=== PATIENT | male | born 1950 | race Caucasian/White ===

== ENCOUNTER 2017-01-09 09:00 | Inpatient (IN) | payer BC ==
--- NOTE | 2017-01-03 14:26 | HP ---
HISTORY AND PHYSICAL: DATE OF ADMISSION/SURGERY: 01/09/17 DATE OF OFFICE VISIT: 01/03/17 SURGEON: Beatriz Preciado MD. PROCEDURE: Left total hip arthroplasty. CHIEF COMPLAINT: Left hip pain. HISTORY OF PRESENT ILLNESS: Mr. Hernandez is a 66-year-old gentleman with complaints of left hip pain. He has failed conservative management and has elected to proceed with a left total hip arthroplasty . The surgery is scheduled for 01/09/[address] Preciado. PAST MEDICAL HISTORY: 1. Hypertension. 2. Hyperlipidemia. 3. BPH. 4. Acid reflux. PAST SURGICAL HISTORY: 1. Bilateral knee arthroscopies. 2. Umbilical hernia repair. 3. Tonsillectomy. CURRENT MEDICATIONS: 1. Hydrochlorothiazide. 2. Omeprazole. 3. Naproxen. 4. Cialis. 5. Multivitamin. ALLERGIES: No known drug allergies. FAMILY HISTORY: Colon cancer, heart disease, and prostate cancer. SOCIAL HISTORY: He is a 66-year-old gentleman. He lives with his . He is retired. He does no t smoke or use drugs. He uses occasional alcohol. REVIEW OF SYSTEMS: A complete 14-point review of systems was reviewed with the patient. It was pos itive for occasional lightheadedness. He denies shortness of breath, chest pain, palpitations. The rest was negative and noncontributory. PHYSICAL EXAMINATION GENERAL: He is well developed, well nourished, he is in no acute distress. VITAL SIGNS: He stands 6 feet 1 inch tall, blood pressure is 160/92, his heart rate is 80. HEENT: Normocephalic, atraumatic. NECK: Supple. No palpable lymph nodes. Trachea is midline. CARDIO: Regular rate and rhythm. Strong S1, S2. ABDOMEN: Soft, nontender, nondistended. MUSCULOSKELETAL: Left lower extremity skin is intact. He has limited internal and external rotatio n of the left hip and he walks with an antalgic-type gait favoring his left leg. His lower extremit y muscle group strengths are intact at 5/5. He has 2+ dorsalis pedis pulses and intact sensation. NEUROLOGIC: He is alert and oriented x3. Cranial nerves II through XII are intact. ASSESSMENT AND PLAN: Mr. Hernandez is a 66-year-old gentleman with the complaints of left hip pain sec ondary to osteoarthritis. He has failed conservative management and has elected to proceed with a l eft total hip arthroplasty, which is scheduled for 01/09/[address] Preciado discussed the risks and benefits of the surgery at today's visit, and all of his questions were answered. Coumad in, Percocet, and Colace were sent to his pharmacy today for postoperative pain control and DVT prop hylaxis. He will see Dr. Preciado back 2 weeks after the surgery. KLAUDIA LEACH [id number]/[facility] #: [id number]
[~2017-01-09 09:00] MED LIST: Buffered Lidocaine 1% SYR 3ML* 3 ML/SYR SYRINGE INTRADERM ONE; Dexamethasone IV* 4 MG/ML 1 ML (4 MG) IV SLOW PU ONE; Famotidine IV* 10 MG/ML 2 ML (20 mg) IV ONE; Scopolamine 1.5 mg* PATCH TRANSDERM ONE
[2017-01-09] MEDS ORDERED: Scopolamine 1.5 mg* PATCH ONE (10:53)
[2017-01-09] MEDS ORDERED: ceFAZolin 2 GM PREMIX(*) 2 GM/50 ML BAG IVPB ONE (10:53)
[2017-01-09] MEDS ORDERED: Dexamethasone IV* 4 MG/ML 1 ML (4 MG) ONE (10:53)
[2017-01-09] MEDS ORDERED: Famotidine IV* 10 MG/ML 2 ML (20 mg) ONE (10:53)
[2017-01-09] MEDS ORDERED: Morphine PF AMP (0.5MG/ML)* 5 MG/10 ML AMP ONE (11:22)
[2017-01-09] MEDS ORDERED: fentaNYL* 50 MCG/ML 2 ML VIAL (100 MCG VIAL) ONE (11:22)
[2017-01-09] MEDS ORDERED: Midazolam* 1 MG/ML 5 ML VIAL (5 MG) ONE (11:22)
[2017-01-09] MEDS ORDERED: Midazolam* 1 MG/ML 2 ML VIAL (2 MG) ONE ×3 (12:15→13:45)
[2017-01-09] MEDS ORDERED: Phenylephrine IV* 40 MCG/ML 10 ML SYRINGE ONE (12:56)
[2017-01-09] MEDS ORDERED: Ondansetron INJ* 2 MG/ML VIAL ONE (12:57)
[2017-01-09] MEDS ORDERED: oxyCODONE TAB* 5 MG TAB PO PRN ×2 (13:25→13:27)
[2017-01-09] MEDS ORDERED: fentaNYL* 50 MCG/ML 2 ML VIAL (100 MCG VIAL) IV PRN (13:25)
[2017-01-09] MEDS ORDERED: PROCHLORPERAZINE INJ 5 MG/ML 2 ML VIAL IV PRN (13:25)
[2017-01-09] MEDS ORDERED: Acetaminophen IV 1GM/100ML * 100 ML IVPB ONE (13:25)
[2017-01-09] MEDS ORDERED: Nalbuphine* 20 MG/ML 1 ML VIAL IV PRN (13:27)
[2017-01-09] MEDS ORDERED: Ondansetron INJ* 2 MG/ML VIAL IV PRN (13:27)
[2017-01-09] MEDS ORDERED: Naloxone* 0.4 MG/ML 1 ML VIAL IV PRN (13:27)
[2017-01-09] MEDS ORDERED: Polyethylene Glycol 3350* 17 GM PACKET PO PRN (14:40)
[2017-01-09] MEDS ORDERED: Bisacodyl SUPP* 10 MG SUPP PR PRN (14:40)
[2017-01-09] MEDS ORDERED: Omeprazole CAP* 20 MG PO PRN (14:45)
--- NOTE | 2017-01-09 14:52 | RAD ---
Indication: LEFT total hip replacement. Comparison: December 11, 2016 Technique: RIGHT lateral decubitus crosstable PA view LEFT hip 1234 hours Report: Acetabular component and test fit femoral component/reamer in place. No periprosthetic fracture evident. Overlying soft tissue edema and subcutaneous emphysema. Urinary catheter noted. IMPRESSION: Intraoperative control film.
[2017-01-09] MEDS ORDERED: Nalbuphine* 20 MG/ML 1 ML VIAL ONE (15:22)
--- NOTE | 2017-01-09 15:26 | RAD ---
INDICATION: Status post total left hip replacement surgery. COMPARISON: Comparison is made with a prior study from December 11, 2016. TECHNIQUE: An AP view of the pelvis and frontal and lateral views of the left hip were obtained. FINDINGS: The patient is status post total left hip replacement surgery. The bones and prostheses are in normal alignment. No fracture is seen. There is a small amount of air within the adjacent soft tissues consistent with the patient's recent surgery. IMPRESSION: STATUS POST TOTAL LEFT HIP REPLACEMENT SURGERY.
[2017-01-09] MEDS: Acetaminophen TAB* 325 MG PO SCH ×2 (16:47→20:43)
[2017-01-09] MEDS ORDERED: Warfarin TAB(*) 6 MG PO ONE (17:00)
[2017-01-09] MEDS: Magnesium Hydroxide LIQ* 30 ML UDC PO SCH (20:42)
[2017-01-09] MEDS: Docusate CAP* 100 MG PO SCH (20:42)
[2017-01-09] MEDS: ceFAZolin 1 GM in Dextrose (*) 1 GM/50 ML BAG IVPB SCH (20:44)
[2017-01-10] MEDS: ceFAZolin 1 GM in Dextrose (*) 1 GM/50 ML BAG IVPB SCH ×2 (03:58→11:59)
[2017-01-10] MEDS ORDERED: diPHENhydraMINE IV* 50 MG/ML 1 ml VIAL (BENADRYL) IV PRN (04:05)
[2017-01-10] MEDS ORDERED: diPHENhydraMINE PO* 25 MG PO PRN (04:05)
[2017-01-10] MEDS ORDERED: Morphine INJ* 10 MG/ML 1 ML SYRINGE IV PRN (04:05)
[2017-01-10] MEDS ORDERED: oxyCODONE/Acetamin 5/325 MG* TAB PO PRN (04:05)
[2017-01-10] MEDS ORDERED: Ondansetron INJ* 2 MG/ML VIAL IV PRN (04:05)
[2017-01-10] MEDS ORDERED: oxyCODONE TAB* 5 MG TAB PO PRN (04:05)
[2017-01-10] MEDS ORDERED: Ondansetron TAB* 4 MG PO PRN (04:05)
[2017-01-10] MEDS: Acetaminophen TAB* 325 MG PO SCH (05:54)
[2017-01-10 06:29] LABS: Hematocrit 39 % (42-52); Hemoglobin 13.2 g/dl (14.0-18.0)
[2017-01-10 06:56] LABS: BUN/Creatinine Ratio 17.2 (8-20); Calcium 8.8 mg/dL (8.6-10.3); EGFR African American 97.9 (>60); EGFR Non-African American 76.1 (>60); Potassium 4.1 mmol/L (3.5-5.0)
[2017-01-10] MEDS: Magnesium Hydroxide LIQ* 30 ML UDC PO SCH ×2 (08:10→20:10)
[2017-01-10] MEDS: Docusate CAP* 100 MG PO SCH ×2 (08:10→20:10)
[2017-01-10] MEDS: Multivitamins/Minerals TAB PO SCH (08:10)
[2017-01-10] MEDS: Hydrochlorothiazide TAB* 25 MG PO SCH (08:10)
--- NOTE | 2017-01-10 08:38 | PN ---
Progress Note - Progress Note SOAP: Subjective: 66 y/o male s/p L VLADIMIR by Dr. Preciado 01/09/2017. Patient with minimal complaints, eager for D/C. Afebrile, VSS overnight. Objective: General- Well appearing, NAD, sitting in bed comfortably MSK- Surgical dressing intact, no drainage noted. No swelling LLE, PT 2+ b/l , + DF/PF. Vital Signs Temp 98.0 F 01/10/17 07:27 Pulse 56 01/10/17 07:27 Resp 16 01/10/17 08:10 BP 129/60 01/10/17 07:27 Pulse Ox 97 01/10/17 07:27 Intake & Output 01/09/17 01/10/17 01/10/17 18:59 06:59 18:59 Intake Total 2350 2549 Output Total 900 2700 Balance 1450 -151 Weight 193 lb 3.2 oz Intake: IV Fluids 2350 976 LR 976 NS 50ML, Cefazolin 2G 50 lr 2300 IVPB 53 ABX - CEFAZOLIN 53 Oral 1520 Output: Osorio 600 2700 Estimated Blood Loss 300 Other: # Bowel Movements 0 Laboratory Results - last 24 hr 01/10/17 01/10/17 01/10/17 05:58 05:58 05:58 Hgb 13.2 L Hct 39 L INR (Anticoag Therapy) 0.88 L Sodium 136 Potassium 4.1 Chloride 105 Carbon Dioxide 27 Anion Gap 4 BUN 17 Creatinine 0.99 Est GFR ( Amer) 97.9 Est GFR (Non-Af Amer) 76.1 BUN/Creatinine Ratio 17.2 Glucose 132 H Calcium 8.8 Assessment: 66 y/o male s/p L VLADIMIR by Dr. Preciado 01/09/2017. Plan: - Probably D/C tomorrow - DVT- lovenox, coumadin, 8mg coumadin tonight - PT/ OT - Continue pain regimen Active Medications Generic Name Dose Route Start Last Admin Trade Name Freq PRN Reason Stop Dose Admin Acetaminophen 975 mg 01/09/17 14:00 01/10/17 05:54 Tylenol Tab* PO 01/10/17 13:59 975 mg Q8H WALE Administration Acetaminophen 650 mg 01/10/17 14:00 Tylenol Tab* PO Q4H PRN mild pain or fever Bisacodyl 10 mg 05/11/17 14:40 Dulcolax Supp* NH DAILY PRN constipation Diphenhydramine HCl 12.5 mg 01/10/17 04:05 Benadryl Iv* IV Q6H PRN PRURITIS Diphenhydramine HCl 25 mg 01/10/17 04:05 Benadryl Po* PO Q6H PRN INSOMNIA Docusate Sodium 100 mg 01/09/17 21:00 01/10/17 08:10 Colace Cap* PO 100 mg BID WALE Administration Enoxaparin Sodium 30 mg 01/10/17 15:00 Lovenox(*) SUBCUT Q24H WALE Hydrochlorothiazide 25 mg 01/10/17 09:00 01/10/17 08:10 Hydrodiuril Tab* PO 25 mg DAILY WALE Administration Cefazolin Sodium/Dextrose 1 gm in 50 mls @ 200 mls/hr 01/09/17 20:00 03:58 Kefzol 1 Gm In Dextrose Duplex (*) IVPB 01/10/17 12:14 200 mls/hr Q8H WALE Administration Lactated Ringer's 1,000 mls @ 100 mls/hr 01/09/17 15:00 01/10/17 02:00 Lactated Ringers 1000 Ml Bag* IV 100 mls/hr PER RATE WALE Administration Lactulose 30 ml 01/09/17 14:40 Lactulose* PO Q6H PRN constipation Magnesium Hydroxide 30 ml 01/09/17 21:00 01/10/17 08:10 Milk Of Magnesia Liq* PO 30 ml BID WALE Administration Morphine Sulfate 5 mg 01/10/17 04:05 Morphine Inj (Syringe)* IV Q2H PRN SEVERE PAIN Multivitamins/Minerals 1 tab 01/10/17 09:00 01/10/17 08:10 Theragran/Minerals Tab* PO 1 tab DAILY WALE Administration Omeprazole 20 mg 01/09/17 14:45 Prilosec Cap* PO DAILY PRN INDIGESTION Ondansetron HCl 4 mg 01/10/17 04:05 Zofran Inj* IV Q6H PRN nausea Ondansetron HCl 4 mg 01/10/17 04:05 Zofran Tab* PO Q6H PRN NAUSEA Oxycodone HCl 10 mg 01/10/17 04:05 01/10/17 08:10 Roxycodone Tab* PO 10 mg Q4H PRN Administration breakthrough pain Oxycodone/Acetaminophen 1 tab 01/10/17 04:05 Percocet 5/325 Tab* PO Q3H PRN PAIN - MODERATE Oxycodone/Acetaminophen 2 tab 01/10/17 04:05 Percocet 5/325 Tab* PO Q3H PRN moderate to severe pain Pharmacy Profile Note 1 note 01/12/17 06:00 Scopolomine Patch Remove* PATCH OFF 01/12/17 06:01 ONCE ONE Pharmacy Profile Note 1 note 01/10/17 17:00 Coumadin Daily Reminder* FOLLOW UP 1700 WALE Polyethylene Glycol/Electrolytes 17 gm 01/09/17 14:40 Miralax* PO DAILY PRN Constipation Warfarin Sodium 8 mg 01/10/17 17:00 Coumadin Tab(*) PO 01/10/17 17:01 ONCE@1700 ONE Protocol
--- NOTE | 2017-01-10 10:24 | OP ---
OPERATIVE REPORT: DATE OF OPERATION: 01/09/17 DATE OF : 54 SURGEON: Beatriz Preciado MD STABILIZING MACHINE OPERATOR: KLAUDIA Jain Ms.. was utilized as an customer relations assistant throughout the procedure for every portion of the procedure and was crucial to being able to perform the surgery. ANESTHESIOLOGIST: Dr. Coelho. ANESTHESIA: Spinal. PRE-OP DIAGNOSIS: Severe end-stage degenerative osteoarthritis of the left hip joint. POST-OP DIAGNOSIS: Severe end-stage degenerative osteoarthritis of the left hip joint. OPERATIVE PROCEDURE: The left total hip arthroplasty with acetabular subchondral cyst, bone autogra fting. IMPLANTS USED: This is uncemented Hop Skip Connect total hip hardware. For the acetabular cup, a Tritanium hemispherical cluster hole shell 58 F, 130-mm cancellous bone screw was used. A Trident X3 0-degree polyethylene inserts 40 F was used. For the stem, an Accolade TMZF size 3.5 with a 127-degree neck . For the head, a -2.5 [place] V40 taper adaptor sleeve, and a 40-mm ceramic Biolox femoral head. COMPLICATIONS: None. ESTIMATED BLOOD LOSS: 300 cc. SPECIMENS: Femoral head and acetabular reaming sent to pathology. BRIEF HISTORY/INDICATIONS: Mr. Hernandez is a 66-year-old gentleman with years of increasingly severe l eft hip pain. He failed conservative treatment with antiinflammatories, pain medication, and physic al therapy. Radiographs confirmed efts-do-osaa arthritis. He elected to undergo left total hip art hroplasty due to continued pain and decreased quality of life. Informed consent was obtained from t he patient. He understood the risks of the procedure included, but were not limited to bleeding, in fection, damage to nearby structures, continued pain, need for further surgery, intraoperative fract ure, nerve palsy, hardware failure or loosening, dislocation, leg length discrepancy, stroke, heart attack, blood clot, and . He wished to proceed. INTRAOPERATIVE FINDINGS: Intraoperatively, the patient was noted to have severe end-stage arthritis of the femoral head and acetabulum. All cartilage was completely worn. Acetabulum had significant superolateral wear as well. DESCRIPTION OF PROCEDURE: Mr. Hernandez was identified in the preanesthesia unit. His left lower extre mity was marked as the correct operative site. Informed consent was signed and placed in the chart. The patient was taken to the operative room and placed under spinal anesthesia without difficulty. A Osorio catheter was placed. Patient was placed in the right lateral decubitus position on the pe g board and all bony prominences were well padded. Left lower extremity was prepped and draped in t he usual sterile fashion. Preop time-out was made to correctly identify the patient's side and site . Appropriate perioperative antibiotics were given within 1 hour of incision. A 12-cm posterior hip incision was made with a 10 blade and carried down to the lateral fascial laye r. Lateral fascial layer was then incised in line with the skin incision. A Charnley retractor was placed. Posterior aspect of the hip joint was easily visualized at this point. The piriformis and conjoined tendons were identified and elevated off the posterolateral femur using electrocautery. These were tagged with two #5 Ethibonds. Next, electrocautery was used to make a standard posterola teral capsular flap, which was also tagged with two #5 Ethibonds. The hip was carefully dislocated a t this point. The lesser troch to the center of the femoral head measured 53 mm. An oscillating sa w was used to make the appropriate femoral neck cut. Femoral head was sent to pathology. The femur was carefully retracted anteriorly. After appropriate placement of retractors, the acetab ulum was easily visualized. Long-handled knife was used to carefully remove any remaining labrum fr om the acetabular rim. The superolateral acetabulum bone loss. There was complete loss of cartilag e and significant osteophyte formation. The acetabulum was sequentially reamed to a size 57. A goo d bleeding bone bed was obtained as well as the good peripheral rim fit. Size 57 trial was placed a nd noted to be stable. A 58 cluster hole shell Tritanium acetabular cup was chosen. A small supero posterior subchondral cyst was carefully cleared off cyst debris with a curette and grafted with marvin tabular bone reaming. The size 58 Tritanium cup was then impacted into the acetabulum. There was a stable fit with appropriate anteversion and abduction angle. One 30-mm screw was placed in the sup erior posterior quadrant for extra stability. A Tritanium X3 0- degree polyethylene insert was chos en, which was 40F. This was impacted into the acetabular cup without difficulty. Stability of the insert was checked and rechecked and noted to be stable. Attention was turned next to preparation of the proximal femur. Box cut osteotome and canal finder were used to enter the proximal femur. Proximal femur was sequentially broached up to a size 3.5. The 3.5 broach had excellent fit and appropriate anteversion. The trial 127 neck was placed as was a 40 +0 femoral head trial. The hip was reduced and taken through a range of motion. The hip was s table in all positions. The soft tissue tension and leg lengths were deemed to be appropriate. The hip was carefully dislocated. Lesser troch to the center of the femoral head measurement was ap proximately 58 mm. All trials were carefully removed. Final implant chosen was an Accolade TMZF si ze 3.5 with a 127-degree neck. This was impacted into the femoral canal without difficulty. There was excellent stability and anteversion. This implant did sit up by approximately 2 mm. A 40 Biolox delta ceramic femoral head was chosen with a -2.5 adaptor. These were impacted onto the femoral neck without difficulty. Lesser troch to the center of the femoral head measured 57 mm. T his fit preoperative templating. The hip was reduced and taken through a range of motion. The hip was stable in all positions. There was good soft tissue tension. The hip was copiously irrigated with sterile saline. Previously tagged capsule and tendons were alfreda pproximated to the posterolateral femur through 2 trochanteric drill holes. The lateral fascial lay er was closed using an interrupted #1 Vicryl. The rest of the incision was closed in a layered fashi on using 0 and 2-0 Vicryl. Skin was closed using running 3-0 Monocryl and Dermabond. Sterile Adapti c, 4x4s, and paper tapes were placed on the incision. The patient's anesthesia was reversed without difficulty. He was taken to the PACU in stable condition. Intended weightbearing will be weightbe aring as tolerated with posterior hip precautions. Intended DVT prophylaxis will be Coumadin with a Lovenox bridge. [id number]/[facility] #: [id number]
[2017-01-10] MEDS: oxyCODONE/Acetamin 5/325 MG* TAB PO PRN ×3 (12:00→20:10)
[2017-01-10] MEDS ORDERED: Acetaminophen TAB* 325 MG PO PRN (14:00)
[2017-01-10] MEDS ORDERED: Enoxaparin(*) 30 MG/0.3 ML SYR SUBCUT SCH (15:00)
[2017-01-10] MEDS ORDERED: Warfarin TAB(*) 4 MG PO ONE (17:00)
[2017-01-11] MEDS: oxyCODONE/Acetamin 5/325 MG* TAB PO PRN ×2 (01:11→06:10)
[2017-01-11 05:50] LABS: Hematocrit 39 % (42-52); Hemoglobin 13.2 g/dl (14.0-18.0)
--- NOTE | 2017-01-11 07:43 | PN ---
Progress Note - Progress Note SOAP: Subjective: pt resting comfortably with minimal pain, no complaints Objective: Vital Signs Temp Pulse Resp BP Pulse Ox 99.1 F 67 14 118/61 97 01/11/17 03:38 01/11/17 03:38 01/11/17 06:10 01/11/17 03:38 01/11/17 03:38 Laboratory Last Values Hgb 13.2 g/dl (14.0-18.0) L 01/11/17 05:36 Hct 39 % (42-52) L 01/11/17 05:36 INR (Anticoag Therapy) 1.16 (0.89-1.11) H 01/11/17 05:36 Sodium 136 mmol/L (133-145) 01/10/17 05:58 Potassium 4.1 mmol/L (3.5-5.0) 01/10/17 05:58 Chloride 105 mmol/L (101-111) 01/10/17 05:58 Carbon Dioxide 27 mmol/L (22-32) 01/10/17 05:58 Anion Gap 4 mmol/L (2-11) 01/10/17 05:58 BUN 17 mg/dL (6-24) 01/10/17 05:58 Creatinine 0.99 mg/dL (0.67-1.17) 01/10/17 05:58 Est GFR ( Amer) 97.9 (>60) 01/10/17 05:58 Est GFR (Non-Af Amer) 76.1 (>60) 01/10/17 05:58 BUN/Creatinine Ratio 17.2 (8-20) 01/10/17 05:58 Glucose 132 mg/dL (70-100) H 01/10/17 05:58 Calcium 8.8 mg/dL (8.6-10.3) 01/10/17 05:58 incision: c/d; dressing changed PE: NVI Assessment: s/p left VLADIMIR; POD #2 Plan: 1) Continue PT/OT-WBAT 2) continue Lovenox/Coumadin/SCD's for DVT prophylaxis 3) home today, F/U with Dr. Preciado in 2 weeks
[2017-01-11 07:58] VITALS: BP 122/62
[2017-01-11] MEDS: Magnesium Hydroxide LIQ* 30 ML UDC PO SCH (08:00)
[2017-01-11] MEDS: Multivitamins/Minerals TAB PO SCH (08:00)
[2017-01-11] MEDS: Docusate CAP* 100 MG PO SCH (08:00)
[2017-01-11] MEDS: Hydrochlorothiazide TAB* 25 MG PO SCH (08:00)
--- NOTE | 2017-01-11 17:34 | DS ---
AMENDED REPORT TO INCLUDE ATTENDING PROVIDER - ESIGNED BEFORE ADJUSTMENT DISCHARGE SUMMARY: DATE OF ADMISSION: 01/09/17 DATE OF DISCHARGE: 01/11/17 ATTENDING PROVIDER: Dr. Preciado * (DICTATED BY KLAUDIA MENDOZA) PRINCIPAL DIAGNOSIS: Severe end-stage osteoarthritis of the left hip. DISCHARGE DIAGNOSIS: Severe end-stage osteoarthritis of the left hip. HISTORY OF PRESENT ILLNESS: Mr. Hernandez is a 66-year-old gentleman with complaints of severe left hip pain secondary to advanced osteoarthritis. He failed conservative management and elected to proceed with a left total hip arthroplasty. HOSPITAL COURSE: Mr. Hernandez is a 66-year-old gentleman who was admitted electively to the hospital on 01/09/17 and underwent a left total hip arthroplasty, which he tolerated well. No complications. Postoperatively, he was placed on Lovenox and Coumadin for DVT prophylaxis. His H and H on postoperative day 1 was 13 and 39. On postop day 2, 13 and 39. His INR went from 0.8 on postop day 1 to 1.16 on postop day 2. His last dose of Coumadin was 8 mg. At the time of discharge on 01/11/17, he was afebrile. He was ambulating well and his wound was clean, dry, and healing well. He was discharged home and asked to follow up with Dr. Preciado in 2 weeks. MEDICATIONS ON DISCHARGE: 1. Colace 1 tab 3 times a day as needed. 2. Percocet 5/325 one to two tabs every 4 to 6 hours as needed for pain. 3. Coumadin 2 mg. 4. Hydrochlorothiazide 25 mg daily. 5. Omeprazole 20 mg daily. PHYSICAL EXAMINATION UPON DISCHARGE: He was afebrile. Vital signs were stable. His wound was clean, dry, and healing well. There was no erythema, drainage, or warmth. No signs of infection. He did well, neurovascularly intact. His lower extremity muscle group strengths were intact at 5/5. He has 2+ dorsalis pedis pulses, he has intact sensation, and he is walking well with the aid of a walker. DISCHARGE INSTRUCTIONS: He is discharged home. He is asked to follow up with Dr. Preciado in 2 weeks. He is given a prescription for Percocet to take every 4 to 6 hours for pain. He is also given a prescription for Colace to help with constipation. He is asked to take Coumadin every at 5 o'clock for DVT prophylaxis. His last INR was 1.16. He is asked to take 8 mg of Coumadin and 8 mg of Coumadin Friday night. He will have his INR rechecked on Friday with [facility]. He will begin physical therapy at his home next week. Posterior hip precautions required and he is weightbearing as tolerated. We have asked him to call us with any questions or concerns. KLAUDIA LEACH [id number]/[facility] #: [id number] LIZZETH
[2017-01-12] MEDS ORDERED: Scopolomine PATCH Remove* 1 NOTE MISC PATCH OFF ONE (06:00)
== END 2017-01-11 10:50 | disposition home or self-care (01) | DRG 301 ==
LOC: AA 10:43 → SSU 15:50
PROVIDERS: ADMIT Orthopaedic Surgery Adult Reconstructive Orthopaedic Surgery; ATTEND Orthopaedic Surgery Adult Reconstructive Orthopaedic Surgery
PROC: 0QU507Z Supplement Left Acetabulum with Autologous Tissue Substitute, Open Approach (ICD-10-PCS; 2017-01-09)
PROC: 0QB50ZZ Excision of Left Acetabulum, Open Approach (ICD-10-PCS; 2017-01-09)
PROC: 0SRB04A Replacement of Left Hip Joint with Ceramic on Polyethylene Synthetic Substitute, Uncemented, Open Approach (ICD-10-PCS; principal; 2017-01-09 12:00)
DX: M16.12 Unilateral primary osteoarthritis, left hip (principal); I10 Essential (primary) hypertension; E78.5 Hyperlipidemia, unspecified; N40.0 Benign prostatic hyperplasia without lower urinary tract symptoms; K21.9 Gastro-esophageal reflux disease without esophagitis; M85.68 Other cyst of bone, other site; M25.752 Osteophyte, left hip; Z80.0 Family history of malignant neoplasm of digestive organs; Z80.42 Family history of malignant neoplasm of prostate; Z82.49 Family history of ischemic heart disease and other diseases of the circulatory system
CPT/HCPCS: 36415; 72170; 80048; 85014; 85018; 85610; A9270-GY; C1713; C1776; J0690; J1100; J1650; J2250; J2300; J2405; J3010

== ENCOUNTER 2019-08-20 07:29 | Inpatient (IN) | payer MEDICARE, BC ==
--- NOTE | 2019-08-13 13:31 | HP ---
AMENDED REPORT NOW INCLUDES DESIGNATED COSIGNER - ESIGNED BEFORE ADJUSTMENTS HISTORY AND PHYSICAL: DATE OF ADMISSION/SURGERY: 08/20/19 DATE OF OFFICE VISIT: 08/13/19 SURGEON: Beatriz Preciado MD * (DICTATED BY KLAUDIA LEACH) PROCEDURE: Right total knee arthroplasty. CHIEF COMPLAINT: Right knee pain. HISTORY OF PRESENT ILLNESS: Mr. Hernandez is a 68-year-old gentleman with end- stage osteoarthritis of the right knee. He has failed conservative treatment and elected to proceed with a right total knee arthroplasty. PAST MEDICAL HISTORY: Hypertension and high cholesterol. PAST SURGICAL HISTORY: Left total hip arthroplasty, bilateral knee arthroscopies and hernia repair. CURRENT MEDICATIONS: 1. Cialis 5 mg as needed. 2. Irbesartan 150 mg daily. 3. Hydrochlorothiazide 12.5 mg a day. 4. Atorvastatin 10 mg a day. ALLERGIES: No known drug allergies. FAMILY HISTORY: Coronary artery disease and stroke. SOCIAL HISTORY: This is a 68-year-old gentleman who lives with his . He does not smoke or use drugs. He drinks approximately 3 beers a night. REVIEW OF SYSTEMS: A complete 14-point review of systems was reviewed with the patient. It was all negative or noncontributory. He denies history of DVT, PE , hepatitis, HIV, or anesthesia problems. PHYSICAL EXAMINATION GENERAL: He is well developed, well nourished, in no acute distress. VITAL SIGNS: He stands 71 inches tall, weighs 190 pounds. His blood pressure is 114/70 and his heart rate is 54. HEENT: Normocephalic, atraumatic. NECK: Supple. No palpable lymph nodes. PULMONARY: The lungs are clear to auscultation bilaterally. CARDIO: Regular rate and rhythm. Strong S1, S2. ABDOMEN: Soft, nontender, nondistended. NEUROLOGICAL: He is alert and oriented x3. MUSCULOSKELETAL: Right Lower Extremity: The skin is intact. There are no open wounds or abrasions. He has a moderate effusion of the right knee joint. Some tenderness along the medial and lateral joint line. Range of motion is 10 to 110 degrees of flexion with significant patellofemoral crepitus. He is able to dorsiflex and plantarflex. He has 2+ dorsalis pedis pulse and intact sensation. ASSESSMENT AND PLAN: Mr. Hernandez is a 68-year-old gentleman with end-stage osteoarthritis of the right knee. He has failed conservative treatment and elected to proceed with the right total knee arthroplasty. The surgery is scheduled for 08/20/[address] Preciado discussed the risks and benefits of the surgery at today's visit and all of his questions were answered. He will follow up with Dr. Preciado 2 weeks after the surgery. KLAUDIA LEACH [id number]/[facility] #: [id number] [facility] CENTERLillian
[~2019-08-20 07:29] MED LIST changes: +Acetaminophen TAB* 325 MG PO ONE; -Buffered Lidocaine 1% SYR 3ML* 3 ML/SYR SYRINGE INTRADERM ONE; +Buffered Lidocaine 1% SYRIN* 1 ML/SYRINGE INTRADERM ONE; -Dexamethasone IV* 4 MG/ML 1 ML (4 MG) IV SLOW PU ONE; -Famotidine IV* 10 MG/ML 2 ML (20 mg) IV ONE; +Gabapentin CAP(*) 300 MG PO ONE; +Lactated Ringers 1000 ML Bag* 1,000 ML IV SCH; -Scopolamine 1.5 mg* PATCH TRANSDERM ONE; +Tranexamic Acid 1,000 MG in NS 0.9% 50 ML* (outpatient use) IV SCH; +celeCOXIB CAP* 200 MG PO ONE
--- OUTSIDE RECORDS SUMMARY | 2019-08-20 07:33 | XMS REPORT | Continuity of Care Document ---
:1950 External Reference #:[id number] Author Name Beatriz Preciado M.D. (transmitted by agent of provider Asuncion Wood) Address [address] [place] [address] [place] [address] Care Team Providers Name Role Phone Anthony Carson MD - Family Medicine Care Team Information Secretary Specialist [phone] Asia Mcallister MD - Family Care Team Information Secretary Specialist [phone] Medicine Problems Active Problems Provider Date Adult health examination Chris Mcdowell M.D.,FACP Onset: 10/05/2007 Gastroesophageal reflux disease Chris Mcdowell M.D.,FACP Onset: 2007 Hyperlipidemia Chris Mcdowell M.D.,FACP Onset: 10/05/2007 Impotence of organic origin Chris Mcdowell M.D.,FACP Onset: 11/08/2008 Ex-smoker Chris Mcdowell M.D.,FACP Onset: 03/31/2009 Vitamin D deficiency Chris Mcdowell M.D.,FACP Onset: 12/27/2009 Localized, primary osteoarthritis Beatriz Preciado M.D. Onset: 12/11/2016 Localized, primary osteoarthritis of Beatriz Preciado M.D. Onset: 12/11/2016 the pelvic region and thigh Prosthetic arthroplasty of the hip Beatriz Preciado M.D. Onset: 02/19/2017 Social History Type Date Description Comments Sex Unknown Cigarette Use Pack Years - 30 Tobacco Use Start: Unknown Smoked 1/2-1 PPD Age 20 To 58, 4 Years Off Tobacco Use Start: Unknown End: Former Cigarette Smoker quit 01/07 Unknown Smoking Status Reviewed: 07/12/19 Former Cigarette Smoker quit 01/07 Smokeless Tobacco Never Used Smokeless Tobacco ETOH Use Drinks 1 Alcoholic Beverage 1-2 daily Per Day Tobacco Use Start: Unknown End: Patient is a former smoker Unknown Exercise Type/Frequency Exercises regularly Allergies, Adverse Reactions, Alerts Description No Known Drug Allergies Medications Active Medications SIG Qnty Indications Ordering Date Provider Cialis 1 by mouth 1 hour 20tabs Unknown 5mg Tablets before intercourse as needed Irbesartan 1 by mouth every Unknown 150mg Tablets day Hydrochlorothiazide 1 by mouth every Unknown 25mg day Tablets Medications Administered in Office Medication SIG Qnty Indications Ordering Provider Date Celestone 3 mg and 3mg David Darden MD 09/09/2018 Injection Synvisc Or Synvisc-One Injection 1 Beatriz Preciado M.D. 04/03/2015 MG Injection Synvisc Or Synvisc-One Injection 1 Beatriz Preciado M.D. 03/27/2015 MG Injection Synvisc Or Synvisc-One Injection 1 Beatriz Preciado M.D. 03/20/2015 MG Injection Depomedrol 80MG Beatriz Preciado M.D. 10/26/2014 Injection Depomedrol 80MG Beatriz Preciado M.D. 12/24/2013 Injection Depomedrol 80MG Beatriz Preciado M.D. 12/10/2013 Injection Immunizations CPT Code Status Date Vaccine Lot # [id number] Given 11/08/2008 Tdap - Tetanus/Diptheria/Acellular Pertussis [id number] Vital Signs Date Vital Result Comment 07/12/2019 10:37am Height 71 inches 5'11" Weight 193.00 lb BP Systolic 120 mmHg BP Diastolic 82 mmHg Respiratory Rate 16 /min Body Temperature 97.6 F Pain Level 5 BMI (Body Mass Index) 26.9 kg/m2 01/11/2019 8:50am Height 71 inches 5'11" Weight 190.00 lb Heart Rate 46 /min Body Temperature 96.4 F O2 % BldC Oximetry 98 % BMI (Body Mass Index) 26.5 kg/m2 Results Description No Information Available Procedures Date Code Description Status 12/30/2004 97831527 Colonoscopy Completed Medical Devices Description No Information Available Encounters Type Date Location Provider Dx Diagnosis Office Visit 01/11/2019 [facility] Beatriz Preciado, M25.552 Pain in left hip 8:30a at [place] [facility] Z47.1 Aftercare following joint replacement surgery Z96.642 Presence of left artificial hip joint Assessments Date Code Description Provider 07/12/2019 M17.0 Bilateral primary osteoarthritis of knee Beatriz Preciado M.D. 07/12/2019 M25.562 Pain in left knee Beatriz Preciado M.D. 07/12/2019 M25.561 Pain in right knee Beatriz Preciado M.D. 07/12/2019 M25.462 Effusion, left knee Beatriz Preciado M.D. 07/12/2019 M25.461 Effusion, right knee Beatriz Preciado M.D. 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 right knee 07/12/2019 M21.162 Varus deformity, not elsewhere classified, left Beatriz Preciado M.D. knee 01/11/2019 M25.552 Pain in left hip Beatriz Preciado M.D. 01/11/2019 Z47.1 Aftercare following joint replacement surgery Beatriz Preciado M.D. 01/11/2019 Z96.642 Presence of left artificial hip joint Beatriz Preciado M.D. Plan of Treatment 07/12/2019 - Beatriz Preciado M.D.M17.0 Bilateral primary osteoarthritis of kneeFollow up:Follow up: 7-10 days before vugfuebR78.562 Pain in left kneeM25.561 Pain in right kneeM25.462 Effusion, left kneeM25.461 Effusion, right kneeM21.161 Varus deformity, not elsewhere classified, right kneeM21.162 Varus deformity, not elsewhere classified, left knee Functional Status Description No Information Available Mental Status Description No Information Available Referrals Description No Information Available
--- OUTSIDE RECORDS SUMMARY | 2019-08-20 07:33 | XMS REPORT | Continuity of Care Document ---
:1950 External Reference #:[id number] Author Name Tone Nevarez DO FACC (transmitted by agent of provider Lupe Guzman) Address [address] [place] [id number] Care Team Providers Name Role Phone Anthony Carson MD - Family Medicine Care Team Information Senior Devops Engineer Asia Mcallister MD - Family Care Team Information Senior Devops Engineer [phone] Medicine Problems Active Problems Provider Date Adult [...] Smoker quit 01/07 Unknown Smoking Status Reviewed: 08/10/19 Former Cigarette Smoker quit 01/07 Smokeless Tobacco Never Used Smokeless Tobacco ETOH Use Drinks 1 Alcoholic Beverage 1-2 daily Per Day Tobacco Use Start: Unknown End: Patient is a former smoker Unknown Recreational Drug Use Never Used Drugs Exercise Type/Frequency Exercises regularly Allergies, Adverse Reactions, Alerts Description No Known Drug Allergies Medications Active Medications SIG Qnty Indications Ordering Date Provider Atorvastatin Calcium 1 by mouth daily 30tabs Tone S. 08/08/2019 10mg Nevarez, DO Tablets FACC Cialis 1 by mouth 1 hour 20tabs [...] CPT Code Status Date Vaccine Lot # [id number] Given 11/08/2008 Tdap - Tetanus/Diptheria/Acellular Pertussis [id number] Vital Signs Date Vital Result Comment 08/10/2019 3:13pm Height 71 inches 5'11" Weight 192.00 lb with shoes Heart Rate 58 /min BP Systolic Sitting 126 mmHg lue reg cuff BP Diastolic Sitting 70 mmHg lue reg cuff BP Systolic Standing 123 mmHg lue reg cuff BP Diastolic Standing 70 mmHg lue reg cuff Respiratory Rate 14 /min BMI (Body Mass Index) 26.8 kg/m2 Ejection Fraction none 07/12/2019 10:37am Height 71 inches 5'11" Weight 193.00 lb BP Systolic 120 mmHg BP Diastolic 82 mmHg Respiratory Rate 16 /min Body Temperature 97.6 F Pain Level 5 BMI (Body Mass Index) 26.9 kg/m2 Results Description No Information Available Procedures Date Code Description Status 08/10/2019 30104 EKG Tracing & Interpretation Completed 12/30/2004 10197849 Colonoscopy Completed Medical Devices Description No Information Available Encounters Type Date Location Provider Dx Diagnosis Office Visit 07/12/2019 [facility] Beatriz Preciado, M17.0 Bilateral primary 10:30a at [place] [facility] osteoarthritis of knee M25.562 Pain in left knee M25.561 Pain in right knee M25.462 Effusion, left knee M25.461 Effusion, right knee M21.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 Varus deformity, not elsewhere classified, right knee M21.162 Varus deformity, not elsewhere classified, left knee Assessments Date Code Description Provider 08/10/2019 Z01.810 Encounter for preprocedural Tone Nevarez DO [facility] cardiovascular examination 08/10/2019 I49.1 Atrial premature depolarization Tone Nevarez DO [facility] 08/10/2019 R94.31 Abnormal electrocardiogram [ECG] [EKG] Tone Nevarez DO [facility] 08/10/2019 I10 Essential (primary) hypertension Tone Nevarez DO [facility] 08/10/2019 E78.5 Hyperlipidemia, unspecified Tone Nevarez DO [facility] 08/10/2019 F17.201 Nicotine dependence, unspecified, 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 07/12/2019 M25.562 Pain in left knee Beatriz Preciado M.D. 07/12/2019 M25.561 Pain in right knee Beatriz Preciado M.D. 07/12/2019 M25.462 Effusion, left knee Beatriz Preciado M.D. 07/12/2019 M25.461 Effusion, right knee Beatriz Preciado M.D. 07/12/2019 M21.161 Varus deformity, not elsewhere Beatriz Preciado M.D. classified, right knee 07/12/2019 M21.162 Varus deformity, not elsewhere Beatriz Preciado M.D. classified, left knee Plan of Treatment Future Appointment(s):08/12/2019 9:00 am - Traveling ECHO 2 at [facility]08/16/2019 8:45 am - Nurse Visit IC at [facility]08/13/2019 3:30 pm - Nurse Visit IC at [facility]08/20/2019 12 :30 pm - KLAUDIA Levy at [facility]08/13/2019 10:00 am - Beatriz Preciado M.D. at [facility] at [id number]/20/2019 12:30 pm - Beatriz Precidao M.D. at [facility] at [id number]/10/2019 - Tone Nevarez DO FACCZ01.810 Encounter for preprocedural cardiovascular examinationFollow up: Please schedule echo and holter suma (surgery on 08/20) f/u PRNI49.1 Atrial premature depolarizationNew Orders:Holter Monitor, Ordered: 08/10/19R94.31 Abnormal electrocardiogram [ECG] [EKG]New Orders:Echocardiogram, Ordered: I10 Essential (primary) ahdbmsbhcgxkW12.5 Hyperlipidemia, rgfmoarcyiwP82.201 Nicotine dependence, unspecified, in remission Functional Status Description No Information Available Mental Status Description No Information Available Referrals Description No Information Available
--- OUTSIDE RECORDS SUMMARY | 2019-08-20 07:33 | XMS REPORT | Continuity of Care Document ---
:1950 External Reference #:[id number] Author Name Beatriz Preciado M.D. (transmitted by agent of provider Asuncion Wood) Address [address] [place] [address] [place] [address] Care Team Providers Name Role Phone Anthony Carson MD - Family Medicine Care Team Information Quarantine Inspector [phone] Asia Mcallister MD - Family Care Team Information Quarantine Inspector [phone] Medicine Problems Active Problems Provider Date Adult [...] Smoker quit 01/07 Unknown Smoking Status Reviewed: 08/13/19 Former Cigarette Smoker quit 01/07 Smokeless Tobacco [...] CPT Code Status Date Vaccine Lot # [id number] Given 11/08/2008 Tdap - Tetanus/Diptheria/Acellular Pertussis [id number] Vital Signs Date Vital Result Comment 08/13/2019 10:23am Height 71 inches 5'11" Weight 190.00 lb Heart Rate 54 /min BP Systolic 114 mmHg BP Diastolic 70 mmHg Respiratory Rate 16 /min Body Temperature 97.0 F Pain Level 3 BMI (Body Mass Index) 26.5 kg/m2 08/10/2019 3:13pm Height 71 inches 5'11" Weight 192.00 lb with shoes Heart Rate 58 /min BP Systolic Sitting 126 mmHg lue reg cuff BP Diastolic Sitting 70 mmHg lue reg cuff BP Systolic Standing 123 mmHg lue reg cuff BP Diastolic Standing 70 mmHg lue reg cuff Respiratory Rate 14 /min BMI (Body Mass Index) 26.8 kg/m2 Ejection Fraction none Results Description No Information Available Procedures Date Code Description Status 08/12/2019 72943 ECHO Transthoracic, Real-Time 2D With Doppler And Color Completed Flow 08/10/2019 48232 EKG Tracing & Interpretation Completed 12/30/2004 18705101 Colonoscopy Completed Medical Devices Description No Information Available Encounters Type Date Location Provider Dx Diagnosis Office Visit 08/10/2019 [facility] Tone Cruz Z01.810 Encounter for 3:40p Of Ange Nevarez DO [facility] preprocedural cardiovascular examination M17.11 Unilateral primary osteoarthritis, right knee I49.1 Atrial premature depolarization R94.31 Abnormal electrocardiogram [ECG] [EKG] I10 Essential (primary) hypertension E78.5 Hyperlipidemia, unspecified F17.201 Nicotine dependence, unspecified, in remission R01.1 Cardiac murmur, unspecified Office Visit 07/12/2019 10:30a [place] Beatriz M17.0 Bilateral primary Orthopedics at [facility] Preciado osteoarthritis of [place] knee M25.562 Pain in left knee M25.561 Pain in right knee M25.462 Effusion, left knee M25.461 Effusion, right knee M21.161 Varus deformity, not elsewhere classified, right knee M21.162 Varus deformity, not elsewhere classified, left knee Assessments Date Code Description Provider 08/13/2019 M17.11 Unilateral primary osteoarthritis, right Beatriz Preciado M.D. knee 08/13/2019 M25.561 Pain in right knee Beatriz Preciado M.D. 08/12/2019 R94.31 Abnormal electrocardiogram [ECG] [EKG] Traveling ECHO 2 08/10/2019 Z01.810 Encounter for preprocedural Tone Nevarez DO [facility] cardiovascular examination 08/10/2019 M17.11 Unilateral primary osteoarthritis, right Tone Nevarez, DO [facility] knee 08/10/2019 I49.1 Atrial premature depolarization Tone Nevarez DO [facility] 08/10/2019 R94.31 Abnormal electrocardiogram [ECG] [EKG] Tone Nevarez DO [facility] 08/10/2019 I10 Essential (primary) hypertension Tone Nevarez, DO [facility] 08/10/2019 E78.5 Hyperlipidemia, unspecified Tone Nevarez, DO [facility] 08/10/2019 F17.201 Nicotine dependence, unspecified, in Tone Nevarez, DO [facility] remission 08/10/2019 R01.1 Cardiac murmur, unspecified Tone Nevarez, DO [facility] 07/12/2019 M17.0 Bilateral primary osteoarthritis of knee [...] classified, left knee Plan of Treatment Future Appointment(s):08/16/2019 8:45 am - Nurse Visit IC at [facility]08/20/2019 12:30 pm - KLAUDIA Levy at [facility] at [place]6808/20/2019 12:30 pm - Beatriz Preciado M.D. at [facility] at [id number] - Beatriz Precaido M.D.M17.11 Unilateral primary osteoarthritis, right kneeFollow up:Follow up: 2 weeks after zrrxjkcJ18.561 Pain in right knee Functional Status Description No Information Available Mental Status Description No Information Available Referrals Description No Information Available
[2019-08-20] MEDS ORDERED: Gabapentin CAP(*) 300 MG ONE (08:27)
[2019-08-20] MEDS ORDERED: Acetaminophen TAB* 325 MG ONE (08:27)
[2019-08-20] MEDS ORDERED: Buffered Lidocaine 1% SYRIN* 1 ML/SYRINGE INTRADERM ONE (08:28)
[2019-08-20] MEDS ORDERED: ceFAZolin 2 GM PREMIX in ORs 2 GM/50 ML BAG ONE (08:28)
[2019-08-20] MEDS ORDERED: celeCOXIB CAP* 200 MG ONE (08:28)
[2019-08-20] MEDS ORDERED: fentaNYL* 50 MCG/ML 5 ML VIAL (250 MCG VIAL) ONE (09:03)
[2019-08-20] MEDS ORDERED: Midazolam* 1 MG/ML 2 ML VIAL (2 MG) ONE (09:03)
[2019-08-20] MEDS ORDERED: Bupivacaine 0.5% SDV PF* 30ML VIAL ONE (09:06)
[2019-08-20] MEDS ORDERED: fentaNYL* 50 MCG/ML 2 ML VIAL (100 MCG VIAL) ONE (09:06)
[2019-08-20] MEDS ORDERED: Bupivacaine 0.5%* 50 ML MDV VIAL ONE ×2 (09:57→11:25)
[2019-08-20] MEDS ORDERED: diPHENhydraMINE IV* 50 MG/ML 1 ml VIAL (BENADRYL) IV PRN ×2 (09:59→13:14)
[2019-08-20] MEDS ORDERED: HYDROmorphone INJ1* 1 MG/ML SYRINGE IV PRN (09:59)
[2019-08-20] MEDS ORDERED: Ondansetron INJ* 2 MG/ML VIAL IV PRN ×2 (09:59→13:14)
[2019-08-20] MEDS ORDERED: PROCHLORPERAZINE INJ 5 MG/ML 2 ML VIAL IV PRN (09:59)
[2019-08-20] MEDS ORDERED: Naloxone* 0.4 MG/ML 1 ML VIAL IV PRN (09:59)
[2019-08-20] MEDS ORDERED: oxyCODONE TAB* 5 MG TAB PO PRN (09:59)
[2019-08-20] MEDS ORDERED: ROPIVACAINE 5 MG/ML 30 ML BTL (0.5%) ONE ×2 (10:07→13:26)
[2019-08-20] MEDS ORDERED: methylPREDNISolone ACETATE 80* 80 MG/ML 1 ML VIAL ONE (11:25)
[2019-08-20] MEDS ORDERED: Ropivacaine 0.2% * 2 MG/ML VIAL ONE (11:28)
[2019-08-20] MEDS ORDERED: Povidone Iodine 5% OPTH* 30 ML BTL ONE (11:45)
[2019-08-20] MEDS ORDERED: diPHENhydraMINE PO* 25 MG PO PRN (13:14)
[2019-08-20] MEDS ORDERED: traMADol TAB* 50 MG PO PRN (13:14)
[2019-08-20] MEDS ORDERED: Polyethylene Glycol 3350* 17 GM PACKET PO PRN (13:14)
[2019-08-20] MEDS ORDERED: Ondansetron TAB* 4 MG PO PRN (13:14)
[2019-08-20] MEDS ORDERED: Morphine INJ* 2 MG/ML 1 ML SYRINGE (TWO MG - NEW SYRINGE VERSION) IV PRN (13:14)
[2019-08-20] MEDS ORDERED: Magnesium Hydroxide LIQ* 30 ML UDC PO PRN (13:14)
[2019-08-20] MEDS ORDERED: Cyclobenzaprine TAB* 10 MG PO PRN (13:14)
[2019-08-20] MEDS ORDERED: Ondansetron ODT TAB* 4 MG PO PRN (13:14)
[2019-08-20] MEDS ORDERED: Pantoprazole TAB * 40 MG TAB PO PRN (13:17)
[2019-08-20] MEDS ORDERED: Propofol* 10 MG/ML 20 ML BTL ONE (13:21)
[2019-08-20] MEDS ORDERED: Acetaminophen TAB* 325 MG PO SCH (14:00)
[2019-08-20] MEDS: Lactated Ringers 1000 ML Bag* 1,000 ML IV SCH (15:50)
--- NOTE | 2019-08-20 16:27 | OP ---
Operative Report - Blank - Operative Report Date of Operation: 08/20/19 Note: JUAN F WESTFALL II 1950 Date of Surgery: 08/20/19 Beatriz Preciado MD Bow String Maker: Destiney RUDOLPH did help throughout the procedure with preparation of the knee, wound retraction, manipulation of the knee, and wound closure. Anesthesiologist: Dr. Hu Anesthesia Type: Spinal Preoperative Diagnosis: Right severe degenerative osteoarthritis of the knee, Left severe degenerative osteoarthritis of the knee Postoperative Diagnosis: As above Procedure Performed: Right Total Knee Arthroplasty, Left knee intraarticular steroid injection Tourniquet time: 59 minutes Complications: None Specimen: Bone and cartilage from the right knee joint sent to pathology. Hardware Used: Cemented Webb and Nephew total knee hardware was used - For the femur a size 7 right oxinium legion posterior stabilized femoral component, for the tibia a size 6 right bonifacio II tibial baseplate, for the insert a size 9mm 5-6 posterior stabilized articular polyethylene insert, and for the patella a size 35 3-peg all poly patella. Brief History/Indication: JUAN F WESTFALL II was known in clinic and had a history of severe right knee pain and swelling. He failed conservative treatment with anti-inflammatories, pain pills, intra-articular injections and physical therapy. He elected to undergo right total knee arthroplasty due to continued pain and decreased quality of life. Radiographs showed severe end stage osteoarthritis of the knee with bone on bone contact. Informed consent was obtained from the patient. He understood the risks of surgery included but were not limited to: bleeding, infection, damage to nearby structures, intraoperative fracture, nerve palsy, failure of the hardware, early loosening, knee stiffness or loss of motion, anesthesia complications, stroke, heart attack , blood clot and . He wished to proceed. Intra-Operative Findings: Intraoperatively the patient was noted to have severe loss of cartilage in all 3 compartments of the knee. Description of the Procedure: JUAN F WESTFALL II was identified in the preanesthesia unit. His right knee was marked as the correct operative side. Left knee was marked for injection. Informed consent was signed and placed in the chart. The patient was taken to the operating room and placed under anesthesia without complication. A dacosta catheter was placed. Timeout for left knee injection was performed. Under sterile conditions, 80 mg depomedrol and 6 cc 1% lidocaine was injected into the left knee joint. A tourniquet was placed on the right thigh. The right lower extremity was prepped and draped in the usual sterile fashion. Preoperative time-out was made to correctly identify the patient, side and site. Appropriate intraoperative antibiotics were given within one hour of incision. Tourniquet was inflated. A midline incision was made and carried sharply down to the extensor mechanism. A new 10 blade was used to make a standard medial parapatellar arthrotomy. The patella was subluxed laterally. Electrocautery was used to dissect soft tissue off the superomedial tibia to the midsagittal plane. The knee was flexed up. The anterior horn of the lateral meniscus and the ACL were sharply incised. A drill was used to enter the distal femur. The intramedullary distal femoral cutting guide was pinned on the distal femur. The oscillating saw was used to make the distal femoral cut. The external rotation guide was pinned on the distal femur and the distal femur was sized to a size 7. The size 7 multi-cutting jig was pinned on the distal femur. The oscillating saw was used to make the appropriate 4 chamfer cuts. Next the PCL was completely released. The extramedullary tibial cutting guide was pinned on the proximal tibia and the oscillating saw was used to make the proximal tibial cut perpendicular to the mechanical axis of the tibia. The bone was carefully removed. The knee was brought out into full extension. The spacer block was placed and had excellent fit with the knee in full extension. The medial and lateral ligaments were well balanced. The flexion and extension gaps were well balanced. The knee was flexed up. Lamina nuclear physicist was placed both medially and laterally. Any remaining meniscus was removed with electrocautery. Curved osteotome was used to remove any posterior osteophytes. The tibial tray and drop casey were placed and confirmed a satisfactory tibial cut. The size 7 right femoral trial was impacted onto the distal femur. This trial had excellent fit and stability. The box for the posterior stabilized implant was prepared using a box cut osteotome and a reamer. Next a tibial tray trial and 9 mm insert trial was placed. The knee was taken through a range of motion and had full extension to 130 degrees of flexion. Patellofemoral tracking was satisfactory. The patella was inverted and sized to a size 35. Three peg holes were drilled through the size 35 drill guide. The trial patella was placed and the knee was taken through a range of motion. There was satisfactory patellofemoral tracking. All trials were removed. The tibia was subluxed anteriorly and sized to a size 6. The proximal tibial was prepared with a size 6 keel punch. All bony cut surfaces were irrigated with sterile saline and dried. Final implants were cemented into place starting with the tibia, followed by the femur, and last the patella. A 9 mm insert trial was placed and the knee was brought into full extension. Tourniquet was turned down and the knee was copiously irrigated with sterile saline. Electrocautery was used to obtain meticulous hemostasis. Once the cement had fully cured, the insert trial was removed. Any excess cement was removed from around the hardware and capsule. Final insert chosen was a 9 mm posterior stabilized Bonifacio II articular insert size 5-6. Stability of the insert was checked and noted to be stable. The extensor mechanism was closed using number 1 vicryls. The rest of the incision was closed in a layered fashion using 0 and 2-0 vicryls. The skin was closed using 3-0 nylon suture. Sterile xeroform, 4x4s and webril were used to cover the incision. Loco wrap and cold pack were used to cover the dressings. The patients anesthesia was reversed without difficulty. He was taken to the PACU in stable condition. Intended weight-bearing will be as tolerated.
[2019-08-20] MEDS: oxyCODONE/Acetamin 5/325 MG* TAB PO PRN ×2 (17:03→21:36)
[2019-08-20] MEDS: oxyCODONE TAB* 5 MG TAB PO PRN ×2 (17:53→21:36)
[2019-08-20] MEDS ORDERED: Valsartan TAB* 160 MG PO SCH (18:00)
[2019-08-20] MEDS: ceFAZolin 1 GM ADVAN(*) 1 GM in NS 0.9% 50 ML* 50 ML IVPB SCH (19:49)
--- NOTE | 2019-08-20 19:55 | CONS ---
HOSPITAL MEDICINE CONSULTATION REPORT: DATE OF CONSULT: 08/20/19 PROVIDER: Nadia Issa NP ATTENDING PHYSICIAN: Dr. Beatriz Preciado. CONSULTING PHYSICIAN: Dr. Jonnie Evans (dictated by Nadia Issa NP). REASON FOR CONSULT: Co-management of chronic medical conditions. HISTORY OF PRESENT ILLNESS: Mr. Hernandez is a 68-year-old male with a past medical history significant for hypertension, osteoarthritis, hyperlipidemia, and GERD, who presented to [facility] [place] for an elective righ t total knee arthroplasty with Dr. Preciado. Please see dictated H and P from Christina Boykin for complet e details. In brief, the patient had ongoing pain, failed conservative measures and therefore opted for a right total knee arthroplasty with Dr. Preciado. In the immediate postoperative period, the patie nt has no complaints. He denies any recent fever or chills, unintended weight loss, chest pain, thaddeus a, cough, hemoptysis, shortness of breath. No nausea, vomiting, diarrhea, abdominal pain, hematuria, or dysuria. Denies any focal weakness or sensory loss. Denies any visual complaints, dysphagia. He does complain of some right knee pain. No rashes, lesions, open sores, psychosis, or anxiety. Due to the patient's history of hypertension, Hospital Medicine was asked to consult to help co-manag e his care during this hospitalization. PAST MEDICAL HISTORY: Significant for: 1. Hypertension. 2. Osteoarthritis. 3. Hyperlipidemia. 4. GERD. PAST SURGICAL HISTORY: 1. Abdominal hernia repair x2. 2. Knee surgery. 3. Left hip surgery. HOME MEDICATIONS: Include: 1. Atorvastatin 10 mg p.o. daily. 2. Cialis 5 mg p.o. daily as needed. 3. Valsartan 150 mg p.o. daily. 4. Hydrochlorothiazide 25 mg p.o. daily. ALLERGIES: No known drug allergies. FAMILY HISTORY: Father at the age of 28 from rheumatic heart disease. No reported history of d iabetes or cancer in the family. SOCIAL HISTORY: The patient quit smoking approximately 12 years ago. Prior to that he smoked more t nguyen half pack a day for 25 years. He does report 2 to 3 beers daily. Denies any illicit drug use. He is . He lives with his . Surrogate decision maker in the event he is unable to make hi s own decision is his . He is a full code. REVIEW OF SYSTEMS: An 14-point review of systems was completed. All pertinent positives are mention ed in the HPI. PHYSICAL EXAMINATION: General: At this time, Mr. Hernandez is a 68-year-old male. He is alert and orie nted, resting on his hospital bed. He is in no acute distress. Vital Signs: Blood pressure 152/64, heart rate is 56, respirations 18, O2 saturation of 100%, and temperature is 98.1. HEENT: Head is a traumatic, normocephalic. Eyes: EOMs are intact. Sclerae are anicteric and not pale. Oral mucosa appeared to be moist. Neck is supple. Lungs are clear to auscultation bilaterally. No wheezes, ral es, or rhonchi. Cardiac: S1, S2. Regular rate and rhythm. No rubs or gallops. Abdomen is soft an d nontender. Bowel sounds are present x4. Extremities: He is able to move all 4 extremities. Peda l pulses are +2 bilaterally. He does have a dressing that has a drain intact to his right knee. Neur ologic: He is awake, alert, oriented x3. Speech is clear. Thought process is intact. There are no gross focal deficits. Skin: He does have dressing dry and intact to his right knee. LABORATORY DATA/DIAGNOSTIC STUDIES: CBC from 08/13/19, WBCs 6.1, RBCs 4.59, hemoglobin 14.1, hematoc rit 41, platelet count was 190. INR was 0.90. Urine was within normal limits with the exception of specific gravity of 1.006. IMPRESSION AND PLAN: Mr. Hernandez is a 68-year-old male with a past medical history significant for hyp ertension, osteoarthritis, hyperlipidemia, and acid reflux, who presented to [facility] [place] for an elective righ t total knee arthroplasty with Dr. Preciado. Our recommendations are as follows: 1. Status post right total knee arthroplasty. Management per Orthopedics, PT/OT per Orthopedics. B owel regimen per Orthopedics. Pain management per Orthopedics. DVT prophylaxis per Orthopedics. 2. Hypertension. I will continue him on his valsartan. I will hold his hydrochlorothiazide and res ume as able. 3. Hyperlipidemia. He is to continue on atorvastatin 10 mg p.o. daily. 4. FEN. He can have a regular diet. 5. Code status. He is a full code. 6. DVT prophylaxis. As per Orthopedics. TIME SPENT: Time spent on this consultation was 45 minutes, greater than half that time was spent at the bedside reviewing the events leading thus far to this hospitalization, performing physical exam and reviewing my plan of care. I have discussed this with my attending, Dr. Jonnie Evans, he is in agreement with my plan. NADIA ISSA, REGISTERED MIDWIFE [id number]/CPS #: [id number]
[2019-08-20] MEDS ORDERED: Atorvastatin* 10 MG TAB PO SCH (21:00)
[2019-08-20] MEDS: Magnesium Hydroxide LIQ* 30 ML UDC PO SCH (21:35)
[2019-08-20] MEDS: Docusate CAP* 100 MG PO SCH (21:35)
[2019-08-21] MEDS: oxyCODONE TAB* 5 MG TAB PO PRN ×3 (00:49→13:59)
[2019-08-21] MEDS: Lactated Ringers 1000 ML Bag* 1,000 ML IV SCH (02:11)
[2019-08-21] MEDS: oxyCODONE/Acetamin 5/325 MG* TAB PO PRN ×3 (03:13→11:53)
[2019-08-21] MEDS: ceFAZolin 1 GM ADVAN(*) 1 GM in NS 0.9% 50 ML* 50 ML IVPB SCH ×2 (03:13→11:49)
[2019-08-21 06:19] LABS: Hematocrit 36 % (42-52); Hemoglobin 12.6 g/dL (14.0-18.0); Mean Platelet Volume 9.5 fL (7.4-10.4); Platelet Count 158 10^3/uL (150-450)
[2019-08-21 06:32] LABS: BUN/Creatinine Ratio 16.8 (8-20); Calcium 8.6 mg/dL (8.6-10.3); EGFR African American 78.6 (>60); EGFR Non-African American 64.9 (>60); Potassium 3.9 mmol/L (3.5-5.0)
[2019-08-21] MEDS ORDERED: Vitamin THERAPEUTIC TAB PO SCH (09:00)
[2019-08-21] MEDS ORDERED: Hydrochlorothiazide TAB* 25 MG PO SCH (09:00)
[2019-08-21] MEDS ORDERED: Apixaban* 2.5 MG TAB PO SCH (09:00)
[2019-08-21] MEDS: Magnesium Hydroxide LIQ* 30 ML UDC PO SCH (09:01)
[2019-08-21] MEDS: Docusate CAP* 100 MG PO SCH (09:01)
--- NOTE | 2019-08-21 10:22 | PN ---
Progress Note - Progress Note Date of Service: 08/21/19 SOAP: Subjective: [Pt is doing well, seen laying in bed this am. Has been up with physical therapy this am. States that pain is well controlled. Denies any chest pain, SOB. nausea or vomiting. ] Objective: [General: A&Ox3, NAD MSK, RLE: Dressing is c/d/i, Dressing changed, incision is c/d/i/ NVI distally. 2+ DP pulse. + df/pf. ] Vital Signs Temp 97.6 F 08/21/19 08:23 Pulse 55 08/21/19 08:23 Resp 16 08/21/19 08:23 BP 154/77 08/21/19 08:23 Pulse Ox 98 08/21/19 08:23 Intake & Output 08/20/19 08/21/19 08/21/19 18:59 06:59 18:59 Intake Total 840 Output Total 1300 2900 Balance -1300 -2060 Weight 192 lb 3.2 oz Intake: Oral 840 Output: Urine 2450 Osorio 1300 450 Other: Estimated Void Large # Voids 1 Assessment: [POD 1 RTKA ] Plan: [Eliquis x 30 days PT/OT Pain medication DC home today ]
--- NOTE | 2019-08-21 10:24 | DS ---
Orthopedic Discharge Summary - Discharge Summary Date of Admission:08/20/19 Date of Discharge: 08/21/2019 Date of Surgery: 08/20/2019 Attending Orthopedic Provider: Dr. Preciado Pre-operative Diagnosis: Right knee osteoarthritis Operative Procedure: Right total knee arthroplasty Disposition of Patient: Home Condition of Patient: Good History: JUAN F WESTFALL II is a 68 year old M with years of increasingly severe right knee pain. Patient has failed conservative management and has elected to undergo a right total knee replacement Hospital Course: JUAN F was admitted to [facility] on 08/20/19. Patient underwent a right total knee arthroplasty without complication followed by a brief recovery in PACU and transfer to the Short Stay Surgical Unit in stable condition. Our hospitalist service, physical therapy and occupational therapy also participated in this patients care. Post-op day 1: patient was alert and in no acute distress. Dressing was clean, dry and intact. Operative extremity dorsiflexion and plantarflexion intact, sensation intact to light touch distally, DP2+. Dressing was changed, incision was clean, dry and intact. Patient was deemed to be medically and orthopedically stable for discharge. Physical therapy goals were met. Home Medications Medication Instructions Recorded Confirmed Type Omeprazole CAP (NF) [Prilosec CAP* 20 mg PO DAILY PRN 01/12/14 08/20/19 History 20 MG] Acetaminop/Codeine 30 MG TAB* 1 tab PO Q6H PRN 08/13/19 08/20/19 History Tylenol/Codeine 30 MG TAB* Aspirin [Aspirin Childrens 81 MG] 81 mg PO QAM 08/13/19 08/20/19 History Atorvastatin* [Lipitor*] 10 mg PO 2100 08/13/19 08/20/19 History Ibuprofen TAB* [Motrin TAB* 600 MG] 600 mg PO Q6H PRN 08/13/19 08/20/19 History Tadalafil [Cialis] 5 mg PO QAM 08/13/19 08/20/19 History Valsartan TAB* [Diovan TAB*] 160 mg PO QPM 08/13/19 08/20/19 History hydroCHLOROthiazide 12.5 mg PO QAM 08/13/19 08/20/19 History [Hydrochlorothiazide] Discharge Instructions following Orthopedic Surgery: Activity: * Weight Bearing as tolerated * Continue physical therapy and occupational therapy exercises as shown Wound care: * OK to shower on post-op day 3, no bathing, swimming, or submerging wound. * Use gentle soap, pat dry. Cover with gauze, QUINTON wrap or tape. * Visiting home nurse to do wound checks. Call Orthopedic office for: * Increased drainage * Redness * Increased pain * Fever Go to ER with shortness of breath or chest pain. Diet: * Regular diet * Increase fluids and fiber to prevent constipation. * Continue to use stool softeners, call office if no bowel motion within 48 hours. Medications See Home Medication List in your packet for medications that you should take after discharge. DVT Prophylaxis: Eliquis Dosin.5 mg, 1 tab every 12 hours x 30 days Pain Control: Percocet Dosin/325 mg 1-2 tabs by mouth every 4-6 hours as needed for pain. Maximum of 10 tabs per day. Please note that Percocet contains Tylenol (acetaminophen). Maximum daily dose of Tylenol is 4000 mg from all sources. Antibiotics are required prior to any dental work. FOLLOW UP: Follow up with [Ozzy] Within 10-14 days, call for appointment Please call our office with any questions or concerns ([phone])
[2019-08-21 14:08] VITALS: BP 148/78
[2019-08-22] MEDS ORDERED: Bisacodyl SUPP* 10 MG SUPP PR PRN (13:14)
== END 2019-08-21 14:10 | disposition home or self-care (01) | DRG 470 ==
LOC: AA 07:29 → SSU 13:14
PROVIDERS: ADMIT Orthopaedic Surgery Adult Reconstructive Orthopaedic Surgery; ATTEND Orthopaedic Surgery Adult Reconstructive Orthopaedic Surgery
PROC: 3E0U33Z Introduction of Anti-inflammatory into Joints, Percutaneous Approach (ICD-10-PCS; 2019-08-20)
PROC: 3E0U3BZ Introduction of Anesthetic Agent into Joints, Percutaneous Approach (ICD-10-PCS; 2019-08-20)
PROC: 0SRC069 Replacement of Right Knee Joint with Oxidized Zirconium on Polyethylene Synthetic Substitute, Cemented, Open Approach (ICD-10-PCS; principal; 2019-08-20 10:00)
DX: M17.0 Bilateral primary osteoarthritis of knee (principal); I10 Essential (primary) hypertension; E78.00 Pure hypercholesterolemia, unspecified; Z96.642 Presence of left artificial hip joint; E78.5 Hyperlipidemia, unspecified; M25.761 Osteophyte, right knee; N52.9 Male erectile dysfunction, unspecified; K21.9 Gastro-esophageal reflux disease without esophagitis; Z79.82 Long term (current) use of aspirin; Z82.3 Family history of stroke; Z87.891 Personal history of nicotine dependence
CPT/HCPCS: 36415; 80048; 85014; 85018; 85049; 88305; 88311; A9270-GY; C1776; G8978-GP-CI; G8978-GP-CJ; G8979-GP-CI; J0690; J1040; J2250; J2270; J2704; J2795; J3010; J3490

== ENCOUNTER 2020-07-25 07:30 | Inpatient (IN) ==
[~2020-07-25 07:30] MED LIST changes: -Acetaminophen TAB* 325 MG PO ONE; +Buffered Lidocaine 1% SYRIN 1 ml INTRADERM ONE; -Buffered Lidocaine 1% SYRIN* 1 ML/SYRINGE INTRADERM ONE; -Gabapentin CAP(*) 300 MG PO ONE; -Lactated Ringers 1000 ML Bag* 1,000 ML IV SCH; +Lactated Ringers 1000 ml BAG 1,000 ML IV SCH; +Sodium Citrate/Citric Acid LIQ 15 ML UDC PO ONE; -Tranexamic Acid 1,000 MG in NS 0.9% 50 ML* (outpatient use) IV SCH; -celeCOXIB CAP* 200 MG PO ONE
[2020-07-25] MEDS ORDERED: Dexamethasone IV 4 MG/ML VIAL 1 ml VIAL ONE (08:24)
[2020-07-25] MEDS ORDERED: Buffered Lidocaine 1% SYRIN 1 ml INTRADERM ONE (08:25)
[2020-07-25] MEDS ORDERED: ceFAZolin 2 GM PREMIX 2 GM/50 ML BAG ONE (08:25)
[2020-07-25] MEDS ORDERED: Sodium Citrate/Citric Acid LIQ 15 ML UDC ONE (08:25)
[2020-07-25] MEDS ORDERED: ROPIVACAINE 5 MG/ML 30 ML BTL (0.5%) ONE ×2 (08:43→09:11)
[2020-07-25] MEDS ORDERED: Midazolam 2 mg/2 ml VIAL 1 mg/ml 2 ml VIAL (2 mg) ONE ×2 (08:59→09:49)
[2020-07-25] MEDS ORDERED: Lidocaine 1% MPF 5 ML VIAL ONE (09:11)
[2020-07-25] MEDS ORDERED: Glycopyrrolate IV 0.2 MG/ML 1 ML VIAL ONE (10:22)
[2020-07-25] MEDS ORDERED: Naloxone 0.4 mg VIAL 0.4 mg/ml 1 ml VIAL IV PRN (11:04)
[2020-07-25] MEDS ORDERED: fentaNYL 100 mcg/2 ml 50 MCG/ML VIAL IV PRN (11:04)
[2020-07-25] MEDS ORDERED: Ondansetron 4 mg VIAL 2 MG/ML 2 ml VIAL IV PRN ×2 (11:04→12:56)
[2020-07-25] MEDS ORDERED: HYDROmorphone 1 MG/1 ML SYRINGE IV PRN (11:04)
[2020-07-25] MEDS ORDERED: Propofol 10 MG/ML 20 ML BTL ONE (12:06)
[2020-07-25] MEDS ORDERED: diPHENhydraMINE IV 50 MG/ML 1 ml VIAL (BENADRYL) IV PRN (12:56)
[2020-07-25] MEDS ORDERED: diPHENhydraMINE 25 mg TAB PO PRN (12:56)
[2020-07-25] MEDS ORDERED: oxyCODONE/Acetamin 5/325 mg TAB PO PRN (12:56)
[2020-07-25] MEDS ORDERED: Lactulose 30 ml UDC PO PRN (12:56)
[2020-07-25] MEDS ORDERED: Ondansetron ODT 4 mg TAB 4 MG TAB PO PRN (12:56)
[2020-07-25] MEDS ORDERED: Morphine 2 MG/ML SYRINGE IV PRN (12:56)
[2020-07-25] MEDS ORDERED: Magnesium Hydroxide LIQ 30 ML UDC PO PRN (12:56)
[2020-07-25] MEDS: Lactated Ringers 1000 ml BAG 1,000 ML IV SCH (14:15)
[2020-07-25] MEDS: oxyCODONE/Acetamin 5/325 mg TAB PO PRN ×2 (15:30→20:46)
[2020-07-25] MEDS: ceFAZolin 1 GM ADVAN 1 GM in NS 0.9% 50 ML 50 ML IVPB SCH (20:47)
[2020-07-25] MEDS: Magnesium Hydroxide LIQ 30 ML UDC PO SCH (20:47)
[2020-07-26] MEDS: oxyCODONE/Acetamin 5/325 mg TAB PO PRN ×3 (00:52→12:23)
[2020-07-26] MEDS: Lactated Ringers 1000 ml BAG 1,000 ML IV SCH (00:53)
[2020-07-26] MEDS: ceFAZolin 1 GM ADVAN 1 GM in NS 0.9% 50 ML 50 ML IVPB SCH ×2 (03:58→12:26)
[2020-07-26 06:16] LABS: Hematocrit 36 % (42-52); Hemoglobin 12.1 g/dL (14.0-18.0); Mean Platelet Volume 9.3 fL (7.4-10.4); Platelet Count 161 10^3/uL (150-450)
[2020-07-26 06:31] LABS: BUN/Creatinine Ratio 17.7 (8-20); Calcium 8.7 mg/dL (8.6-10.3); EGFR African American 78.3 (>60); EGFR Non-African American 64.7 (>60); Potassium 3.9 mmol/L (3.5-5.0)
[2020-07-26] MEDS: Magnesium Hydroxide LIQ 30 ML UDC PO SCH (08:10)
[2020-07-26] MEDS ORDERED: Vitamin THERAPEUTIC TAB PO SCH (09:00)
[2020-07-26] MEDS ORDERED: NF:tadalafiL 5 MG TABLET (NF) PO SCH (09:00)
[2020-07-26 11:13] VITALS: BP 176/83
== END 2020-07-26 14:00 | disposition home or self-care (01) | DRG 470 ==
LOC: AA 08:26 → SSU 12:56
PROVIDERS: ADMIT Orthopaedic Surgery Adult Reconstructive Orthopaedic Surgery; ATTEND Orthopaedic Surgery Adult Reconstructive Orthopaedic Surgery